=== PATIENT | female | born 1930 ===

== ENCOUNTER 2020-09-08 11:03 | Emergency (ER) | payer OTHER ==
[~2020-09-08] VITALS: Ht 157.5 cm; Wt 79.4 kg
[2020-09-08] MEDS ORDERED: COZAAR25 MG PO (11:19)
[2020-09-08] MEDS ORDERED: TOPROL XL25 M1 PO (11:25)
[2020-09-08] MEDS ORDERED: ADULT LOW DOSE81 M1 PO (11:25)
[2020-09-08] MEDS ORDERED: DICLOFENAC SODI75 MG PO (15:56)
== END 2020-09-08 16:27 | disposition home or self-care (01) ==
LOC: ER 11:03
DX: M79.605 Pain in left leg (principal)